=== PATIENT | male | born 1975 | race Caucasian/White ===

== ENCOUNTER 2017-08-06 12:06 | Inpatient (IN) | payer OTHER ==
[~2017-08-06] VITALS: Ht 188 cm; Wt 200.0 kg
[2017-08-06] MEDS ORDERED: LAMICTAL25 M1 (12:15)
[2017-09-06] MEDS ORDERED: VANCOMYCIN HCL1 GM IV (08:35)
[2017-09-06] MEDS ORDERED: DILTIAZEM ER120 M2 PO (09:29)
[2017-09-06] MEDS ORDERED: CLOPIDOGREL BIS75 MG PO (09:29)
[2017-09-06] MEDS ORDERED: GABAPENTIN800 MG PO (09:29)
[2017-09-09] MEDS ORDERED: PERCOCET 5-3251 EACH PO (16:52)
[2017-09-16] MEDS ORDERED: PERCOCET 5-3251 EACH PO (15:06)
== END 2017-09-06 16:36 | disposition home health service (06) | DRG 871 ==
LOC: ER 12:06 → SEC-K 20:43 → MEDI 20:43 → ICU-2 08-07 07:49 → ICU 08-09 22:28 → MEDI 08-12 19:42
PROC: 3E0F7GC Introduction of Other Therapeutic Substance into Respiratory Tract, Via Natural or Artificial Opening (ICD-10-PCS; principal; 2017-08-06)
PROC: 4A033R1 Measurement of Arterial Saturation, Peripheral, Percutaneous Approach (ICD-10-PCS; 2017-08-06)
PROC: B246ZZZ Ultrasonography of Right and Left Heart (ICD-10-PCS; 2017-08-06)
PROC: B54DZZZ Ultrasonography of Bilateral Lower Extremity Veins (ICD-10-PCS; 2017-08-07)
PROC: BB24ZZZ Computerized Tomography (CT Scan) of Bilateral Lungs (ICD-10-PCS; 2017-08-07)
PROC: BR39ZZZ Magnetic Resonance Imaging (MRI) of Lumbar Spine (ICD-10-PCS; 2017-08-08)
PROC: B246ZZ4 Ultrasonography of Right and Left Heart, Transesophageal (ICD-10-PCS; 2017-08-12)
PROC: B246ZZZ Ultrasonography of Right and Left Heart (ICD-10-PCS; 2017-08-16)
PROC: BR39Y0Z Magnetic Resonance Imaging (MRI) of Lumbar Spine using Other Contrast, Unenhanced and Enhanced (ICD-10-PCS; 2017-08-16)
PROC: 4A12X4Z Monitoring of Cardiac Electrical Activity, External Approach (ICD-10-PCS; 2017-08-27)
DX: A41.02 Sepsis due to Methicillin resistant Staphylococcus aureus (principal); I33.0 Acute and subacute infective endocarditis; J18.9 Pneumonia, unspecified organism; R65.21 Severe sepsis with septic shock; J96.01 Acute respiratory failure with hypoxia; F14.20 Cocaine dependence, uncomplicated; J98.11 Atelectasis; M46.37 Infection of intervertebral disc (pyogenic), lumbosacral region; E86.0 Dehydration; F10.20 Alcohol dependence, uncomplicated; B18.2 Chronic viral hepatitis C; F17.210 Nicotine dependence, cigarettes, uncomplicated; B95.62 Methicillin resistant Staphylococcus aureus infection as the cause of diseases classified elsewhere; M51.36 Other intervertebral disc degeneration, lumbar region; I34.0 Nonrheumatic mitral (valve) insufficiency
CPT/HCPCS: 72159

== ENCOUNTER 2017-09-29 18:54 | Emergency (ER) | payer OTHER ==
[~2017-09-29] VITALS: Ht 185.4 cm; Wt 90.7 kg
[~2017-09-29 18:54] MED LIST: CLOPIDOGREL BIS75 MG PO; DILTIAZEM ER120 M2 PO; GABAPENTIN800 MG PO; LAMICTAL25 M1; PERCOCET 5-3251 EACH PO; VANCOMYCIN HCL1 GM IV
== END 2017-09-29 20:50 | disposition home or self-care (01) ==
LOC: ER 18:54
DX: A41.89 Other specified sepsis (principal)

== ENCOUNTER 2017-10-04 11:34 | Emergency (ER) | payer OTHER ==
[~2017-10-04] VITALS: Ht 185.4 cm; Wt 90.7 kg
[2017-10-04] MEDS ORDERED: PERCOCET 5-3251 EACH PO (14:54)
== END 2017-10-04 14:58 | disposition home or self-care (01) ==
LOC: ER 11:34
DX: M54.89 Other dorsalgia (principal)

== ENCOUNTER 2017-10-11 01:32 | Emergency (ER) | payer OTHER ==
[~2017-10-11] VITALS: Ht 182.9 cm; Wt 86.2 kg
[2017-10-11] MEDS ORDERED: NEURONTIN600 MG PO (08:19)
== END 2017-10-11 08:39 | disposition home or self-care (01) ==
LOC: ER 01:32
DX: R53.81 Other malaise (principal)

== ENCOUNTER → 2017-10-13 | Emergency (ER) | payer OTHER ==
[~2017-10-13] VITALS: Ht 185.4 cm; Wt 90.7 kg
[~2017-10-13] MED LIST changes: +NEURONTIN600 MG PO
== END | disposition left against medical advice (07) ==
LOC: ER 10:45
DX: M54.5 Low back pain (principal)

== ENCOUNTER → 2017-10-29 | Emergency (ER) | payer OTHER ==
[~2017-10-29] VITALS: Ht 185.4 cm; Wt 90.7 kg
[~2017-10-29] MED LIST changes: +FIORINAL 50-321 EACH PO; +LAMICTAL25 MG PO
== END | disposition home or self-care (01) ==
LOC: ER 14:15
DX: M54.5 Low back pain (principal)

== ENCOUNTER → 2017-10-30 | Outpatient (CLI) | payer OTHER | END | disposition home or self-care (01) | LOC: MRI 08:15 | DX: R78.81 Bacteremia (principal) | CPT/HCPCS: 72149 ==

== ENCOUNTER → 2017-11-19 | Emergency (ER) | payer OTHER ==
[~2017-11-19] VITALS: Ht 185.4 cm; Wt 90.7 kg
[~2017-11-19] MED LIST changes: +ADDERALL 30 MG30 MG PO
== END | disposition home or self-care (01) ==
LOC: ER 15:36
DX: R53.81 Other malaise (principal); F90.8 Attention-deficit hyperactivity disorder, other type

== ENCOUNTER → 2017-12-02 | Emergency (ER) | payer OTHER | END | disposition home or self-care (01) | LOC: ER 15:27 | DX: G43.909 Migraine, unspecified, not intractable, without status migrainosus (principal); Z76.0 Encounter for issue of repeat prescription ==

== ENCOUNTER 2017-12-10 14:55 | Emergency (ER) | payer OTHER ==
[~2017-12-10] VITALS: Ht 188 cm; Wt 95.3 kg
== END 2017-12-10 18:01 | disposition home or self-care (01) ==
LOC: ER 14:55
DX: F43.10 Post-traumatic stress disorder, unspecified (principal); Z76.0 Encounter for issue of repeat prescription

== ENCOUNTER → 2018-08-16 | Emergency (ER) | payer OTHER ==
[~2018-08-16] VITALS: Ht 182.9 cm; Wt 127.0 kg
== END | disposition home or self-care (01) ==
LOC: ER 18:38
DX: G40.89 Other seizures (principal); R51 Headache

== ENCOUNTER → 2018-08-26 | Emergency (ER) | payer OTHER ==
[~2018-08-26] VITALS: Ht 177.8 cm; Wt 83.9 kg
== END | disposition home or self-care (01) ==
LOC: ER 10:33
DX: M54.89 Other dorsalgia (principal)